=== PATIENT | female | born 1980 | race Caucasian/White ===

== ENCOUNTER → 2017-11-10 | Outpatient (CLI) | payer OTHER ==
--- NOTE | 2017-11-10 10:07 | MM ---
Reason for exam: screening (asymptomatic). Baseline mammogram. History: Family history of breast cancer in maternal cousin at age 40. Physical Findings: Nurse did not find any significant physical abnormalities on exam. MG Screening Mammo w CAD Bilateral CC and MLO view(s) were taken. The breast tissue is heterogeneously dense. This may lower the sensitivity of mammography. Nodular density 2.5cm from nipple upper outer quadrant. These results were verbally communicated with the patient and result sheet given to the patient on 11/10/17. ASSESSMENT: Incomplete: need additional imaging evaluation, BI-RAD 0 RECOMMENDATION: Special view mammogram of the left breast. If lesion persists on supplemental views, image directed ultrasound is recommended. [facility] will attempt to contact patient to return for supplemental views and ultrasound if indicated.
--- NOTE | 2017-11-10 10:07 | MM ---
Reason for exam: additional evaluation requested from abnormal screening. History: Family history of breast cancer in maternal cousin at age 40. Physical Findings: Breast exam preformed at baseline screening. MG Work Up Mamm w CAD LT Spot compression CC, spot compression MLO, and ML view(s) were taken of the left breast. Nodule persists at 12 o'clock 2cm from nipple. These results were verbally communicated with the patient and result sheet given to the patient on 11/10/17. ASSESSMENT: Incomplete: need additional imaging evaluation, BI-RAD 0 RECOMMENDATION: Ultrasound of the left breast.
--- NOTE | 2017-11-10 10:08 | USB ---
Reason for exam: additional evaluation requested from abnormal screening. History: Family history of breast cancer in maternal cousin at age 40. US Breast Workup Limited LT Left breast ultrasound demonstrates a 9 x 6 x 8mm lobular, cystic lesion at 4 o'clock. These results were verbally communicated with the patient and result sheet given to the patient on 11/10/17. ASSESSMENT: Benign, BI-RAD 2 RECOMMENDATION: Return to routine screening mammogram schedule for both breasts. Manage patient on a clinical basis.
== END | disposition home or self-care (01) ==
LOC: RADMAMWWP 08:20
PROVIDERS: ATTEND Family Medicine
DX: Z12.31 Encounter for screening mammogram for malignant neoplasm of breast (principal); Z80.3 Family history of malignant neoplasm of breast; R92.8 Other abnormal and inconclusive findings on diagnostic imaging of breast
CPT/HCPCS: 77065; 77067

== ENCOUNTER 2017-12-16 09:16 | Day surgery (SDC) | payer OTHER ==
[2017-12-11 13:05] VITALS: BMI 22.6
[~2017-12-16 09:16] MED LIST: LACTATED RINGERS 1,000 ML IV SCH; LIDOCAINE 1% 20 ML VIAL (10MG/ML) FOR IV START INTRADERMA PRN
--- NOTE | 2017-12-16 09:18 | P.GSHP ---
History of Present Illness H&P Date: 12/16/17 CHIEF COMPLAINT: GERD and change in bowel habits HISTORY OF PRESENT ILLNESS: The patient is a 37-year-old female who presents with gastroesophageal reflux disease and change in bowel habits. Upper and lower endoscopy were offered for further evaluation and management. PAST MEDICAL HISTORY: Please see list. PAST SURGICAL HISTORY: Please see list. MEDICATIONS: Please see list. ALLERGIES: Please see list. SOCIAL HISTORY: No illicit drug use FAMILY HISTORY: No reports of Crohn disease or ulcerative colitis. REVIEW OF ORGAN SYSTEMS: CONSTITUTIONAL: No reports of fevers or chills. GI: Denies any blood in stools or constipation. PHYSICAL EXAM: VITAL SIGNS: Stable GENERAL: Well-developed pleasant in no acute distress. HEENT: No scleral icterus. Extraocular movements grossly intact. Moist buccal mucosa. NECK: Supple without lymphadenopathy. CHEST: Unlabored respirations. Equal bilateral excursions. CARDIOVASCULAR: Regular rate and rhythm. Distal 2+ pulses. ABDOMEN: Soft, nondistended. MUSCULOSKELETAL: No clubbing, cyanosis, or edema. ASSESSMENT: 1. Gastroesophageal reflux disease 2. Change in bowel habits. PLAN: 1. Recommend proceeding with an upper and lower endoscopy Past Medical History Past Medical History: GERD/Reflux Additional Past Medical History / Comment(s): MTHFR. CHRONIC DIARRHEA. CURRENTLY ON ANTIBIOTICS FOR ABSCESS TO LT GREAT TOE History of Any Multi-Drug Resistant Organisms: None Reported Past Surgical History: Cholecystectomy, Hysterectomy, Uterine Ablation Additional Past Surgical History / Comment(s): D&C, EGD Past Anesthesia/Blood Transfusion Reactions: Previous Problems w/ Anesthesia, Family History of Problems w/ Anesthesia, Motion Sickness Additional Past Anesthesia/Blood Transfusion Reaction / Comment(s): PT STATES EYES VERY BLURRY AND BLADDER STOPS WORKING SINCE HYSTERECTOMY. PTS DAUGHTERS HAD SURGERY AT 3 AND 5 WEEKS OLD- THEY STOPPED BREATHING AND HEART RATE DROPPED. Smoking Status: Never smoker - Past Family History Sister(s) Family Medical History: Pulmonary Embolus Additional Family Medical History / Comment(s): sister has clotting disorder Medications and Allergies Home Medications Medication Instructions Recorded Confirmed Type Clindamycin [Cleocin] 450 mg PO DAILY 12/11/17 12/11/17 History Allergies Allergy/AdvReac Type Severity Reaction Status Date / Time amoxicillin Allergy Rash/Hives Verified 12/11/17 12:59 sulfamethoxazole Allergy Dyspnea Verified 12/11/17 12:59 [From Bactrim] trimethoprim [From Bactrim] Allergy Dyspnea Verified 12/11/17 12:59 adhesive AdvReac Severe peels Verified 12/11/17 12:59 skin, red,blisters amoxicillin trihydrate AdvReac Rash/Hives Verified 12/11/17 12:59 [From Augmentin] potassium clavulanate AdvReac Rash/Hives Verified 12/11/17 12:59 [From Augmentin]
[2017-12-16 09:49] VITALS: RESP 16; TEMP 98.2
[2017-12-16] MEDS ORDERED: LIDOCAINE 1% INJ 10MG/ML (20 ML MDV) ONE (10:17)
[2017-12-16] MEDS ORDERED: GLYCOPYRROLATE 0.2 MG/ML 2 ML VIAL ONE (10:17)
[2017-12-16] MEDS ORDERED: PROPOFOL 10 MG/ML 20 ML VIAL IV ONE (10:17)
--- NOTE | 2017-12-16 10:56 | P.PCN ---
Date of Procedure: 12/16/17 Description of Procedure: PREOPERATIVE DIAGNOSIS: Change in bowel habits. POSTOPERATIVE DIAGNOSIS: Change in bowel habits. Scattered diverticulosis. OPERATION: Colonoscopy to the ileocecal valve and appendiceal orifice. Colonoscopy with random cold forceps biopsies. SURGEON: Iva Robles MD. ANESTHESIA: MAC. INDICATIONS: The patient is a 37-year-old female who presents with change in bowel habits. Benefits and risks were described and informed consent was obtained. DESCRIPTION OF PROCEDURE: The patient had undergone Gatorade, MiraLAX and Dulcolax prep. She had been brought into the operating room and laid in the left lateral decubitus position. After adequate intravenous sedation, the rectum was examined with 2% lidocaine jelly. No external hemorrhoids were encountered. The rectal tone was within normal limits. No lesions were palpated in the rectal vault. An Olympus colonoscope was advanced until the ileocecal valve and appendiceal orifice were clearly viewed. The prep was excellent with clear visualization of the mucosal folds. The scope was removed with visualization of each mucosal fold. A few scattered diverticulosis was encountered. No colonic polyps were found. Random cold forceps biopsies was obtained throughout the colon to evaluate for collagenous colitis. Retroflexion of the scope demonstrated no inflammed internal hemorrhoids. The colon was desufflated. The patient had tolerated the procedure well. Withdrawal time was over 6 minutes. FINDINGS: No inflamed internal hemorrhoids. No external prolapsed hemorrhoids. No arteriovenous malformations. No adenomatous polyps. No focal colitis. RECOMMENDATIONS: Lower endoscopy per screening guidelines, age 50. Plan - Discharge Summary New Discharge Prescriptions: No Action Clindamycin [Cleocin] 450 mg PO DAILY Discharge Medication List Clindamycin [Cleocin] 450 mg PO DAILY 12/11/17 [History]
--- NOTE | 2017-12-16 10:58 | P.PCN ---
Date of Procedure: 12/16/17 Description of Procedure: PREOPERATIVE DIAGNOSIS: Gastroesophageal reflux disease. Dysphagia. POSTOPERATIVE DIAGNOSIS: Gastroesophageal reflux disease. Gastritis, moderate along antrum. Dysphagia. OPERATION: Esophagogastroduodenoscopy with biopsies along antrum. SURGEON: Iva Robles MD ANESTHESIA: MAC. INDICATIONS: The patient is a 37-year-old female who presents with a history of reflux disease. Benefits and risks of the procedure were described. Informed consent was obtained. DESCRIPTION: The patient was brought into the endoscopy suite and laid in the left lateral decubitus position. An Olympus gastroscope was passed along the posterior oropharynx down to the distal esophagus where the squamocolumnar junction was encountered at 38 cm from the incisors. The stomach was entered and no bile reflux was found. Additional findings are listed below. Biopsies with cold forceps were obtained of the antrum. The first through third portion of the duodenum was examined and unremarkable. Retroflexion of the scope confirmed Hill grade 1 lower esophageal valve. The squamocolumnar junction demostrated mild LA grade A erosive esophagitis. The stomach was desufflated. The patient tolerated the procedure well. FINDINGS: Squamocolumnar junction 38 cm from the incisors. Diaphragmatic hiatus at 38 cm. Hill grade 1 lower esophageal valve. LA grade A erosive esophagitis. No active duodenitis. Moderate superficial gastritis along antrum with biopsies obtained. RECOMMENDATIONS: Continue medical therapy. Further recommendations pending results of pathology report. Upper endoscopy as needed.
[2017-12-16 11:14] VITALS: BP 113/78; PULSE 88
== END 2017-12-16 11:48 | disposition home or self-care (01) ==
LOC: ORWHC2ENDO 09:16
PROVIDERS: ATTEND Surgery Plastic and Reconstructive Surgery
DX: K57.90 Diverticulosis of intestine, part unspecified, without perforation or abscess without bleeding (principal); K52.9 Noninfective gastroenteritis and colitis, unspecified; K22.10 Ulcer of esophagus without bleeding; K29.70 Gastritis, unspecified, without bleeding; Z79.2 Long term (current) use of antibiotics; Z88.0 Allergy status to penicillin; Z88.2 Allergy status to sulfonamides; Z91.09 Other allergy status, other than to drugs and biological substances
CPT/HCPCS: 88305; 45380; 43239; J2001; J2704

== ENCOUNTER → 2018-11-15 | Outpatient (CLI) | payer OTHER ==
--- NOTE | 2018-11-15 22:37 | MR ---
EXAMINATION TYPE: MR lumbar spine wo con DATE OF EXAM: 11/15/2018 COMPARISON: NONE HISTORY: Low back pain / Radiculopathy x2 weeks, pain down both legs, worse on the left TECHNIQUE: Multiplanar, multisequence imaging of the lumbar spine is performed without IV contrast. FINDINGS: Sagittal images of the lumbar spine show vertebral body heights and alignment to appear sat isfactory. The intervertebral discs demonstrate normal heights and hydration. The conus medullaris i s normal in position and signal ending at T12-L1 disc space level. The bone marrow signal intensity is within normal limits. No significant spurring is seen. Axial images show mild facet arthropathy L4-L5 level. Spinal canal is preserved. Bilateral neural for viki are patent. Paraspinal muscle bulk is maintained. IMPRESSION: Mild facet arthropathy L4-L5 level otherwise unremarkable study. No suspicious focal disc herniation is seen.
== END | disposition home or self-care (01) ==
LOC: RADMRIMAIN 18:46
PROVIDERS: ATTEND Family Medicine
DX: M46.96 Unspecified inflammatory spondylopathy, lumbar region (principal)
CPT/HCPCS: 72148

== ENCOUNTER → 2018-12-21 | Outpatient (CLI) | payer OTHER ==
--- NOTE | 2018-12-23 08:52 | MM ---
Reason for exam: screening (asymptomatic). Last mammogram was performed 1 year and 1 month ago. History: Family history of breast cancer in maternal cousin at age 40. Physical Findings: A clinical breast exam by your physician is recommended on an annual basis and results should be correlated with mammographic findings. MG Screening Mammo w CAD Bilateral CC and MLO view(s) were taken. Prior study comparison: November 10, 2017, left breast MG work up mamm w CAD LT. November 10, 2017, bilateral MG screening mammo w CAD. There are scattered fibroglandular densities. No significant changes when compared with prior studies. ASSESSMENT: Benign, BI-RAD 2 RECOMMENDATION: Routine screening mammogram of both breasts at age 40.
== END | disposition home or self-care (01) ==
LOC: RADMAMWWP 14:50
PROVIDERS: ATTEND Family Medicine
DX: Z12.31 Encounter for screening mammogram for malignant neoplasm of breast (principal); Z80.3 Family history of malignant neoplasm of breast
CPT/HCPCS: 77067

== ENCOUNTER 2019-05-06 16:36 | Emergency (ER) | payer OTHER ==
[2019-05-06] MEDS ORDERED: KETOROLAC 30 MG/ML 1 ML VIAL IVP STA (18:04)
--- NOTE | 2019-05-06 18:15 | ED ---
General Adult HPI - General Source: patient Mode of arrival: ambulatory Limitations: no limitations <Debora Goff - Last Filed: 05/06/19 20:11> <Flor Reardon - Last Filed: 05/07/19 04:37> - General Chief complaint: Vaginal Bleeding Stated complaint: vaginal bleeding Time Seen by Provider: 05/06/19 17:23 - History of Present Illness Initial comments: 39-year-old female patient presents to the emergency department today for evaluation of suprapubic abdominal cramping, low back pain, and which she believes may be vaginal bleeding. Patient states she is status post hysterectomy 4 years ago. Patient states she has not had any bleeding since the procedure. Patient states today when she used the bathroom the toilet bowl had pink tinged water. States she did have blood on the toilet paper with wiping. She denies any dysuria, urinary frequency, urinary urgency. Denies any flank pain. States she has had some nausea but denies vomiting. Denies fever or chills with this. Patient denies any recent rash, shortness breath, chest pain, diarrhea, constipation, back pain, numbness, tingling, dizziness, weakness, headache, visual changes, or any other complaints. (Debora Goff) - Related Data Home Medications Medication Instructions Recorded Confirmed Clindamycin [Cleocin] 450 mg PO DAILY 12/11/17 12/16/17 Previous Rx's Medication Instructions Recorded traMADol HCl [Ultram] 50 mg PO Q6HR PRN 3 Days #12 tab 05/06/19 Allergies Allergy/AdvReac Type Severity Reaction Status Date / Time amoxicillin Allergy Rash/Hives Verified 05/06/19 16:45 adhesive AdvReac Severe peels Verified 05/06/19 16:45 skin, red,blisters amoxicillin trihydrate AdvReac Rash/Hives Verified 05/06/19 16:45 [From Augmentin] potassium clavulanate AdvReac Rash/Hives Verified 05/06/19 16:45 [From Augmentin] Review of Systems ROS Other: All systems not noted in ROS Statement are negative. <Debora Goff - Last Filed: 05/06/19 20:11> ROS Other: All systems not noted in ROS Statement are negative. <Flor Reardon - Last Filed: 05/07/19 04:37> ROS Statement: Those systems with pertinent positive or pertinent negative responses have been documented in the HPI. Past Medical History Past Medical History: GERD/Reflux Additional Past Medical History / Comment(s): MTHFR. CHRONIC DIARRHEA. CURRENTLY ON ANTIBIOTICS FOR ABSCESS TO LT GREAT TOE History of Any Multi-Drug Resistant Organisms: None Reported Past Surgical History: Cholecystectomy, Hysterectomy, Uterine Ablation Additional Past Surgical History / Comment(s): D&C, EGD Past Anesthesia/Blood Transfusion Reactions: Previous Problems w/ Anesthesia, Family History of Problems w/ Anesthesia, Motion Sickness Additional Past Anesthesia/Blood Transfusion Reaction / Comment(s): PT STATES EYES VERY BLURRY AND BLADDER STOPS WORKING SINCE HYSTERECTOMY. PTS DAUGHTERS HAD SURGERY AT 3 AND 5 WEEKS OLD- THEY STOPPED BREATHING AND HEART RATE DROPPED. Past Psychological History: No Psychological Hx Reported Smoking Status: Never smoker Past Alcohol Use History: None Reported Past Drug Use History: None Reported - Past Family History Sister(s) Family Medical History: Pulmonary Embolus Additional Family Medical History / Comment(s): sister has clotting disorder <Debora Goff - Last Filed: 05/06/19 20:11> General Exam Limitations: no limitations General appearance: alert, in no apparent distress, other (Physical well- developed, well-nourished adult female patient in no acute distress. Vital signs upon presentation are temperature 98.1F, pulse 73, respirations 18, blood pressure 128/81, pulse ox 100% on room air.) Eye exam: Present: normal appearance, PERRL, EOMI. Absent: scleral icterus, conjunctival injection, periorbital swelling ENT exam: Present: normal exam, normal oropharynx, mucous membranes moist Respiratory exam: Present: normal lung sounds bilaterally. Absent: respiratory distress, wheezes, rales, rhonchi, stridor Cardiovascular Exam: Present: regular rate, normal rhythm, normal heart sounds. Absent: systolic murmur, diastolic murmur, rubs, gallop, clicks GI/Abdominal exam: Present: soft, tenderness (Lower abdominal tenderness), normal bowel sounds. Absent: distended, guarding, rebound, rigid External exam: Present: normal external exam Speculum exam: Present: normal speculum exam. Absent: vaginal bleeding Back exam: Present: normal inspection. Absent: CVA tenderness (R), CVA tenderness (L) Neurological exam: Present: alert, oriented X3, CN II-XII intact Psychiatric exam: Present: normal affect, normal mood Skin exam: Present: warm, dry, intact, normal color. Absent: rash <Debora Goff - Last Filed: 05/06/19 20:11> Course Vital Signs 05/06/19 05/06/19 05/06/19 16:45 18:53 22:33 Temperature 98.1 F 97.7 F Pulse Rate 73 71 65 Respiratory 18 16 18 Rate Blood Pressure 128/81 121/81 111/67 O2 Sat by Pulse 100 99 94 L Oximetry Medical Decision Making - Lab Data Result diagrams: 05/06/19 18:15 05/06/19 18:15 <Debora Goff - Last Filed: 05/06/19 20:11> - Lab Data Result diagrams: 05/06/19 18:15 05/06/19 18:15 - Radiology Data Radiology results: report reviewed <Flor Reardon - Last Filed: 05/07/19 04:37> - Medical Decision Making Patient is a 39-year-old female presents emergency department today for vaginal bleeding. She says history of hysterectomy. At this time Patient case was given to me as a signout from Debora Cabrera. She completed a pelvic exam and noted minimal bleeding that time. Patient's labwork was reviewed and considered unremarkable. She did have hematuria noted. CT abdomen and pelvis was pending upon my evaluation of Patient. Patient CT shows evidence of a right-sided ovarian cyst. Patient complains of some cramping-like pain. I discussed at this time the Patient to follow-up with her SUPERVISOR BAKING, no further treatment or imaging at this time. Patient understands treatment plan will comply. Return parameters were discussed. Given a short course of anti-inflammatory medication and Ultram for pain. (Flor Reardon) - Lab Data Lab Results 05/06/19 05/06/19 05/06/19 Range/Units 18:15 18:15 18:50 WBC 9.3 (3.8-10.6) k/uL RBC 4.42 (3.80-5.40) m/uL Hgb 13.0 (11.4-16.0) gm/dL Hct 40.0 (34.0-46.0) % MCV 90.4 (80.0-100.0) fL MCH 29.5 (25.0-35.0) pg MCHC 32.6 (31.0-37.0) g/dL RDW 13.0 (11.5-15.5) % Plt Count 262 (150-450) k/uL Neutrophils % 62 % Lymphocytes % 28 % Monocytes % 5 % Eosinophils % 2 % Basophils % 0 % Neutrophils # 5.8 (1.3-7.7) k/uL Lymphocytes # 2.6 (1.0-4.8) k/uL Monocytes # 0.5 (0-1.0) k/uL Eosinophils # 0.2 (0-0.7) k/uL Basophils # 0.0 (0-0.2) k/uL Sodium 140 (137-145) mmol/L Potassium 4.3 (3.5-5.1) mmol/L Chloride 106 (98-107) mmol/L Carbon Dioxide 25 (22-30) mmol/L Anion Gap 9 mmol/L BUN 17 (7-17) mg/dL Creatinine 0.58 (0.52-1.04) mg/dL Est GFR (CKD-EPI)AfAm >90 (>60 ml/min/1.73 sqM) Est GFR (CKD-EPI)NonAf >90 (>60 ml/min/1.73 sqM) Glucose 88 (74-99) mg/dL Calcium 9.3 (8.4-10.2) mg/dL Total Bilirubin 0.4 (0.2-1.3) mg/dL AST 31 (14-36) U/L ALT 31 (9-52) U/L Alkaline Phosphatase 59 (38-126) U/L Total Protein 6.8 (6.3-8.2) g/dL Albumin 4.2 (3.5-5.0) g/dL Amylase 38 (30-110) U/L Lipase 209 (23-300) U/L Urine Color Light Yellow Urine Appearance Clear (Clear) Urine pH 7.0 (5.0-8.0) Ur Specific [place] 1.017 (1.001-1.035) Urine Protein Negative (Negative) Urine Glucose (UA) Negative (Negative) Urine Ketones Negative (Negative) Urine Blood Moderate H (Negative) Urine Nitrite Negative (Negative) Urine Bilirubin Negative (Negative) Urine Urobilinogen <2.0 (<2.0) mg/dL Ur Leukocyte Esterase Negative (Negative) Urine RBC >182 H (0-5) /hpf Urine WBC 1 (0-5) /hpf Ur Squamous Epith Cells 5 H (0-4) /hpf Urine Bacteria Occasional H (None) /hpf Urine Mucus Rare H (None) /hpf - Radiology Data Ermold appendix. Right-sided pelvic cyst consistent with ovarian cyst. Minimal free fluid in the pelvis. Hysterectomy noted. (Flor Reardon) Disposition <Debora Goff - Last Filed: 05/06/19 20:11> Is patient prescribed a controlled substance at d/c from ED?: No Time of Disposition: 22:19 <Flor Reardon - Last Filed: 05/07/19 04:37> Clinical Impression: Right ovarian cyst Disposition: HOME SELF-CARE Condition: Good Instructions (If sedation given, give patient instructions): Ovarian Cyst (ED) Additional Instructions: Patient advised to with your SUPERVISOR BAKING. Take medications as prescribed. Motrin and Tylenol as well. Return to emergency department if any alarming signs or symptoms occur. Prescriptions: traMADol HCl [Ultram] 50 mg PO Q6HR PRN 3 Days #12 tab PRN Reason: Pain Referrals: Elio Larios MD [Primary Care Provider] - 1-2 days Danielle Ortiz DO [Doctor of Osteopathic Medicine] - 1-2 days
[2019-05-06 18:35] LABS: Basophils % (A) 0 %; Eosinophils # (A) 0.2 k/uL (0-0.7); Eosinophils % (A) 2 %; Lymphocytes # (A) 2.6 k/uL (1.0-4.8); Lymphocytes % (A) 28 %; MCH 29.5 pg (25.0-35.0); MCHC 32.6 g/dL (31.0-37.0); MCV 90.4 fL (80.0-100.0); Mean Platelet Volume 7.5; Monocytes # (A) 0.5 k/uL (0-1.0); Monocytes % (A) 5 %; Neutrophils # (A) 5.8 k/uL (1.3-7.7); Neutrophils % (A) 62 %; Platelet Count 262 k/uL (150-450); RBC 4.42 m/uL (3.80-5.40); WBC 9.3 k/uL (3.8-10.6)
[2019-05-06 18:42] LABS: ALT 31 U/L (9-52); AST 31 U/L (14-36); African American GFR (CKD) >90 (>60 ml/min/1.73 sqM); Albumin 4.2 g/dL (3.5-5.0); Alkaline Phosphatase 59 U/L (38-126); Amylase 38 U/L (30-110); Anion Gap 9 mmol/L; Blood Urea Nitrogen 17 mg/dL (7-17); Calcium 9.3 mg/dL (8.4-10.2); Carbon Dioxide 25 mmol/L (22-30); Chloride 106 mmol/L (98-107); Glucose 88 mg/dL (74-99); Lipase 209 U/L (23-300); Potassium 4.3 mmol/L (3.5-5.1); Sodium 140 mmol/L (137-145); Total Bilirubin 0.4 mg/dL (0.2-1.3); Total Protein 6.8 g/dL (6.3-8.2)
[2019-05-06 19:04] LABS: Appearance,Urine Clear (Clear); Bacteria,Urine Occasional /hpf; Bilirubin,Urine Negative (Negative); Blood,Urine Moderate (Negative); Color,Urine Light Yellow; Glucose,Urine (UA) Negative (Negative); Ketones,Urine Negative (Negative); Leukocyte Esterase,Urine Negative (Negative); Mucus,Urine Rare /hpf; Nitrite,Urine Negative (Negative); Protein,Urine Negative (Negative); RBC,Urine >182 /hpf (0-5); Specific Gravity,Urine 1.017 (1.001-1.035); Squamous Epithelial Cell,Urine 5 /hpf (0-4); Urobilinogen,Urine <2.0 mg/dL (<2.0); WBC,Urine 1 /hpf (0-5)
--- NOTE | 2019-05-06 19:23 | XR ---
EXAMINATION TYPE: XR KUB DATE OF EXAM: 05/06/2019 COMPARISON: NONE HISTORY: Abdominal pain TECHNIQUE: 2 views upright FINDINGS: Bowel gas pattern is normal. There is no sign of intestinal obstruction or pneumoperitoneum . Fecal pattern is normal. There are no pathologic calcifications. Lung bases are clear. There are cl ips from cholecystectomy. There are phleboliths in the pelvis. IMPRESSION: Nonacute abdomen.
[2019-05-06] MEDS ORDERED: MORPHINE SULFATE 2 MG/ML SYRINGE IVP STA (20:09)
--- NOTE | 2019-05-06 21:54 | CT ---
EXAMINATION TYPE: CT abdomen pelvis w con DATE OF EXAM: 05/06/2019 COMPARISON: None HISTORY: Vaginal bleeding. History of hysterectomy. CT DLP: 669 mGycm Automated exposure control for dose reduction was used. TECHNIQUE: Helical acquisition of images was performed from the lung bases through the pelvis. CONTRAST: Performed without Oral Contrast and with IV Contrast, patient injected with 100ml mL of Isovue 300. FINDINGS: Lung bases are clear. There is no pleural effusion. Heart size is normal. There is no pericardial eff usion. There are clips from cholecystectomy. There is minimal ectasia of the biliary tree. This is probably within normal limits. Spleen appears normal. There is no pancreatic mass. Stomach appears normal. There is no adrenal mass. Kidneys show satisfactory contrast opacification. There is no hydronephrosi s. Ureters are not dilated. There is no retroperitoneal adenopathy. There is hysterectomy. Bladder di stends smoothly. There is 3.7 cm cyst on the right adnexal region consistent with ovarian cyst. There is tiny amount of fluid in the pelvis. There is no mesenteric edema. There is no free air. There is no evidence of a bowel obstruction. The appendix appears normal. Lumbar vertebra have normal spacing and alignment. There is no compression f racture. Posterior elements are intact. Bony pelvis appears intact. IMPRESSION: NORMAL APPENDIX. RIGHT-SIDED PELVIC CYST CONSISTENT WITH OVARIAN CYST. MINIMAL FREE FLUID IN THE PELV IS. HYSTERECTOMY NOTED.
[2019-05-06] MEDS ORDERED: traMADol 50 MG STARTER PACK 3 TAB BTL PO STA (22:20)
[2019-05-06 22:34] VITALS: BP 111/67; PULSE 65; RESP 18; TEMP 97.7
== END 2019-05-06 22:40 | disposition home or self-care (01) ==
LOC: EC 16:36
DX: N83.201 Unspecified ovarian cyst, right side (principal); R31.9 Hematuria, unspecified; Z88.0 Allergy status to penicillin; Z91.048 Other nonmedicinal substance allergy status; Z90.49 Acquired absence of other specified parts of digestive tract; Z90.710 Acquired absence of both cervix and uterus
CPT/HCPCS: 36415; 80053; 82150; 83690; 85025; 81001; 74018; 74177; 99284; 96374; 96375; J1885; J2270; Q9967

== ENCOUNTER 2019-08-24 10:09 | Day surgery (SDC) | payer OTHER ==
[2019-08-22 15:42] VITALS: BMI 23.3
[2019-08-24 10:27] VITALS: RESP 16; TEMP 97.7
[2019-08-24] MEDS ORDERED: PROPOFOL 10 MG/ML 20 ML VIAL IV ONE (10:57)
--- NOTE | 2019-08-24 11:38 | P.PCN ---
Date of Procedure: 08/24/19 Procedure(s) Performed: BRIEF HISTORY: Patient is a 39-year-old pleasant white female scheduled for an elective colonoscopy as a part of screening for colorectal neoplasia. She has strong family history of colon cancer diagnosed in 3 paternal uncles and a paternal aunt in the early 50s. Patient states that she had genetic testing done and was positive for a gene that causes increase as well as his ability to breast and colon cancer. Hence she was recommended to have a colonoscopy every one to [address] Richmond. Her last coloscopy was 3 years ago and was normal. PROCEDURE PERFORMED: Colonoscopy. PREOPERATIVE DIAGNOSIS: Screening for colon cancer/family history of colon cancer. IV sedation per Anesthesia. PROCEDURE: After informed consent was obtained, the patient, was brought into the endoscopy unit. IV sedation was administered by Anesthesia under continuous monitoring. Digital rectal examination was normal. Initially the Olympus CF-160 flexible video colonoscope was then inserted in the rectum, gradually advanced into the cecum without any difficulty. Careful examination was performed as the scope was gradually being withdrawn. Ileocecal valve and the appendiceal orifice were visualized and appeared normal. Prep was excellent. Mucosa of the cecum, ascending colon, transverse colon, descending colon, sigmoid colon, and rectum appeared normal. Retroflexion was performed in the rectum and no lesions were seen. The patient tolerated the procedure well. IMPRESSION: Normal-appearing colon from rectum to cecum with no evidence of colorectal neoplasia. RECOMMENDATIONS: Findings of this examination were discussed with the patient as well as a family. She was advised to have a repeat screening colonoscopy every 1-2 years because of the high risk of colon cancer.
[2019-08-24 11:58] VITALS: BP 108/72; PULSE 72
== END 2019-08-24 12:40 | disposition home or self-care (01) ==
LOC: ORWHC2ENDO 10:09
PROVIDERS: ATTEND Internal Medicine Gastroenterology
DX: Z12.11 Encounter for screening for malignant neoplasm of colon (principal); R32 Unspecified urinary incontinence; Z80.0 Family history of malignant neoplasm of digestive organs; Z88.0 Allergy status to penicillin; Z79.899 Other long term (current) drug therapy; Z91.048 Other nonmedicinal substance allergy status; Z15.01 Genetic susceptibility to malignant neoplasm of breast; Z15.09 Genetic susceptibility to other malignant neoplasm
CPT/HCPCS: J2704; G0105; 45378

== ENCOUNTER → 2021-02-28 | Outpatient (CLI) | payer OTHER ==
--- NOTE | 2021-03-01 11:45 | MM ---
Reason for exam: screening (asymptomatic). Last mammogram was performed 2 years and 2 months ago. History: Family history of breast cancer in maternal cousin at age 40. Physical Findings: A clinical breast exam by your physician is recommended on an annual basis and results should be correlated with mammographic findings. MG Screening Mammo w CAD Bilateral CC and MLO view(s) were taken. Prior study comparison: December 21, 2018, bilateral MG screening mammo w CAD. November 10, 2017, left breast MG work up mamm w CAD LT. The breast tissue is heterogeneously dense. This may lower the sensitivity of mammography. No significant changes when compared with prior studies. ASSESSMENT: Benign, BI-RAD 2 RECOMMENDATION: Routine screening mammogram of both breasts in 1 year.
== END | disposition home or self-care (01) ==
LOC: RADMAMWWP 12:21
PROVIDERS: ATTEND Family Medicine
DX: Z12.31 Encounter for screening mammogram for malignant neoplasm of breast (principal); Z80.3 Family history of malignant neoplasm of breast
CPT/HCPCS: 77067

== ENCOUNTER → 2022-05-01 | Outpatient (CLI) | payer OTHER ==
--- NOTE | 2022-05-02 15:43 | MM ---
Reason for Exam: Screening (asymptomatic). Last mammogram was performed 1 year(s) and 2 month(s) ago. Patient History: Menarche at age 10. First Full-Term at age 27. Hysterectomy at age 34. Premenopausal. Patient has history of breast feeding. Maternal cousin had breast cancer, age 40. Risk Values: Yolis 5 year model risk: 0.8%. NCI Lifetime model risk: 11.9%. Prior Study Comparison: 11/10/2017 Bilateral Screening Mammogram, [facility]. 11/10/2017 Left Diagnostic Mammogram, [facility]. 12/21/2018 Bilateral Screening Mammogram, [facility]. 02/28/2021 Bilateral Screening Mammogram, [facility]. Tissue Density: The breast tissue is heterogeneously dense. This may lower the sensitivity of mammography. Findings: Analyzed By CAD. There is no suspicious group of microcalcifications or new suspicious mass in either breast. Overall Assessment: Negative, BI-RAD 1 Management: Screening Mammogram of both breasts in 1 year. 1. Patient should continue monthly self breast exams. 2. A clinical breast exam by your physician is recommended on an annual basis. 3. This exam should not preclude additional follow-up of suspicious palpable abnormalities. Electronically signed and approved by: Carmen Sarmiento M.D. Radiologist
== END | disposition home or self-care (01) ==
LOC: RADMAMWWP 12:38
PROVIDERS: ATTEND Family Medicine
DX: Z12.31 Encounter for screening mammogram for malignant neoplasm of breast (principal); Z80.3 Family history of malignant neoplasm of breast
CPT/HCPCS: 77063; 77067

== ENCOUNTER 2023-04-08 19:40 | Emergency (ER) | payer OTHER ==
[2023-04-08 20:16] VITALS: TEMP 97.5
[2023-04-08] MEDS ORDERED: IBUPROFEN 400 MG TAB PO STA (21:17)
[2023-04-08] MEDS ORDERED: ACETAMINOPHEN TAB 325 MG TAB PO STA (21:17)
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
[2023-04-08 22:32] VITALS: BP 131/89; PULSE 82; RESP 18
== END 2023-04-08 22:35 | disposition home or self-care (01) ==
LOC: EC 19:40
DX: M54.9 Dorsalgia, unspecified (principal); M16.12 Unilateral primary osteoarthritis, left hip; Z88.0 Allergy status to penicillin; Z91.09 Other allergy status, other than to drugs and biological substances; Z88.8 Allergy status to other drugs, medicaments and biological substances; M51.36 Other intervertebral disc degeneration, lumbar region; Z88.1 Allergy status to other antibiotic agents; V49.9XXA Car occupant (driver) (passenger) injured in unspecified traffic accident, initial encounter
CPT/HCPCS: 72100; 73502; 99283

== ENCOUNTER → 2024-01-22 | Outpatient (CLI) | payer OTHER ==
--- NOTE | 2024-01-25 08:55 | MM ---
Reason for Exam: Screening (asymptomatic). Last mammogram was performed 1 year(s) and 8 month(s) ago. Patient History: Menarche at age 10. First Full-Term at age 27. Hysterectomy at age 34. Premenopausal. Patient has history of breast feeding. Maternal cousin had breast cancer, age 40. Maternal aunt had ovarian cancer at or over age 50. Risk Values: Yolis 5 year model risk: 0.9%. NCI Lifetime model risk: 11.8%. Prior Study Comparison: 11/10/2017 Bilateral Screening Mammogram, [facility]. 11/10/2017 Left Diagnostic Mammogram, [facility]. 12/21/2018 Bilateral Screening Mammogram, [facility]. 02/28/2021 Bilateral Screening Mammogram, [facility]. 05/01/2022 Bilateral MG 3D screening mammo w/cad, [facility]. Tissue Density: The breasts are heterogeneously dense, which may obscure small masses. Findings: Analyzed By CAD. The pattern is symmetrical. No significant interval change No suspicious groups of microcalcifications, spiculated or lobular masses, architectural distortion or other secondary signs of malignancy are mammographically apparent. Overall Assessment: Benign, BI-RAD 2 Management: Screening Mammogram of both breasts in 1 year. A negative mammogram report should not preclude additional follow up of suspicious palpable abnormalities. Patient should continue monthly self breast exam. A clinical breast exam by your physician is recommended on an annual basis and results should be correlated with mammographic findings. Electronically signed and approved by: Edis Gillette D.O. Radiologis
== END | disposition home or self-care (01) ==
LOC: RADMAMWWP 12:30
PROVIDERS: ATTEND Family Medicine
DX: Z12.31 Encounter for screening mammogram for malignant neoplasm of breast (principal); Z80.3 Family history of malignant neoplasm of breast
CPT/HCPCS: 77067

== ENCOUNTER → 2024-04-07 | Outpatient (CLI) | payer OTHER ==
--- NOTE | 2024-04-07 18:01 | US ---
EXAMINATION TYPE: US thyroid st tissue head/neck DATE OF EXAM: 04/07/2024 COMPARISON: NONE CLINICAL INDICATION: Female, 44 years old with history of R49.0 DYSPHONIA; GLAND SIZE: Right Lobe: 4.0 x 1.0 x 1.2 cm Overall Parenchyma: homogeneous Left Lobe: 3.8 x 0.7 x 1.3 cm Overall Parenchyma: homogeneous Isthmus Thickness: 0.1 cm NODULES RIGHT: # of nodules measured on right: 0 LEFT: # of nodules measured on left: 0 ISTHMUS: # of nodules measured in the isthmus: 0 Bilateral neck scanned, no evidence of lymphadenopathy. IMPRESSION: 1. No thyromegaly. 2. No thyroid nodules or cysts 2017 ACR TI-RADS LEVEL: 0 *Highest TI-RADS level nodule reported
== END | disposition home or self-care (01) ==
LOC: RADUSWWP 15:16
PROVIDERS: ATTEND Family Medicine
DX: R49.0 Dysphonia (principal)
CPT/HCPCS: 76536

== ENCOUNTER → 2024-06-02 | Outpatient (CLI) | payer OTHER ==
--- NOTE | 2024-07-12 09:40 | CONS ---
CONSULTATION REASON FOR CONSULTATION: 44-year-old lady has [facility] for loud snoring and witnessed episodes of sleep apnea. HISTORY OF PRESENT ILLNESS: Sleep-wake evaluation. The patient's usual sleep schedule from 9 p.m. to 6:00 a.m. on weekdays and from 11 p.m. to 10:00 a.m. on weekends. No problems with falling asleep. During the sleep, the patient wakes up 2 times. During the day, the patient feels sleepiness. [place] Sleepiness Scale is 8. The patient takes one nap in the middle of the day. Positive history of hypnagogic hallucinations, but no sleep paralysis or cataplexy. PAST MEDICAL HISTORY: Hyperlipidemia, sinus problems, headaches sometimes started in the morning after awakenings, anxiety, and depression. SOCIAL HISTORY: Negative for smoking or using alcohol. MEDICATION: Effexor once a day. FAMILY HISTORY: Positive for hypertension, asthma, thyroid problems, and peptic ulcer disease. REVIEW OF SYSTEMS: Loud snoring, awakenings from sleep, feeling tiredness and sleepiness during the day. No fevers. No double vision. No recent chest pain. No shortness of breath. No abdominal pain. No bleeding episodes. No blood in the urine. No seizure episodes. PHYSICAL EXAMINATION: GENERAL: The patient is in no distress. Awake, alert, oriented x3. VITAL SIGNS: BP 142/70, HR 95, RR 16, temperature 97.9, weight 142.2 pounds, body mass index 23.4. HEENT: PERRLA, EOMI, low position of soft palate, Mallampati 3. NECK: Supple. No JVD. 13.5 inches in circumference. LUNGS: Clear. HEART: S1, S2 regular. No murmurs, gallop, or up. ABDOMEN: Soft, nontender. EXTREMITIES: No edema. FINANCIAL SYSTEMS MANAGER: No focal deficit. IMPRESSION: 1. Snoring, witnessed episodes of sleep apnea, low position of soft palate, possible obstructive sleep apnea-hypopnea syndrome. 2. Long sleep time, excessive daytime sleepiness, positive history of hypnagogic hallucinations, possible hypersomnia. 3. Depression. 4. History of anxiety. 5. History of headaches after awakenings. 6. Status post partial hysterectomy. PLAN: 1. Polysomnography for evaluation of the patient breathing during sleep. 2. Multiple sleep latency test if sleep study is negative for obstructive sleep apnea- hypopnea syndrome. 3. Sleep hygiene and regular time in bed for at least 8 hours. 4. Precautions related to driving. No driving if feeling sleepiness. Thank you very much for referring this patient for consultation. Sincerely, VENANCIO / IJN: [id number] /
== END ==
LOC: 3 N SLEEP 10:36
PROVIDERS: ATTEND Internal Medicine
CPT/HCPCS: 99211

== ENCOUNTER 2024-07-19 09:41 | Day surgery (SDC) | payer OTHER ==
[2024-07-18 10:39] VITALS: BMI 22.7
[~2024-07-19 09:41] MED LIST changes: -LIDOCAINE 1% 20 ML VIAL (10MG/ML) FOR IV START INTRADERMA PRN
[2024-07-19 10:35] VITALS: TEMP 97.6
[2024-07-19] MEDS: IV FLUID CONTINUATION 1,000 ML IV ONE (10:35)
[2024-07-19] MEDS ORDERED: LIDOCAINE 2% (PF) 20 MG/ML 5 ML VIAL ONE (11:21)
[2024-07-19] MEDS ORDERED: PROPOFOL 10 MG/ML 20 ML VIAL IV ONE (11:21)
--- NOTE | 2024-07-19 11:40 | P.PCN ---
Date of Procedure: 07/19/24 Procedure(s) Performed: BRIEF HISTORY: Patient is a 40-year-old pleasant white female scheduled for an elective colonoscopy as a part of screening for colon cancer. She does have strong family history of colon cancer diagnosed in 3 paternal uncles and paternal aunt all in their early 50s. She herself had genetic testing and was positive for a gene that increases her susceptibility for breast and colon cancer. Her last colonoscopy was 5 years ago. PROCEDURE PERFORMED: Colonoscopy. PREOPERATIVE DIAGNOSIS: Screening for colon cancer and family history of colon cancer]. IV sedation per Anesthesia. PROCEDURE: After informed consent was obtained, the patient, was brought into the endoscopy unit. IV sedation was administered by Anesthesia under continuous monitoring. Digital rectal examination was normal. Initially the Olympus CF-160 flexible video colonoscope was then inserted in the rectum, gradually advanced into the cecum without any difficulty. Careful examination was performed as the scope was gradually being withdrawn. Ileocecal valve and the appendiceal orifice were visualized and appeared normal. Prep was fair. Thyroidization was performed.. Mucosa of the cecum, ascending colon, transverse colon, descending colon, sigmoid colon, and rectum appeared normal. Retroflexion was performed in the rectum and no lesions were seen. The patient tolerated the procedure well. IMPRESSION: Normal-appearing colon from rectum to cecum no evidence of colorectal neoplasia. RECOMMENDATIONS: Findings of this examination were discussed with the patient as well as her family. She was advised to have repeat screening colonoscopy because of the strong family history of colon cancer as well as genetic susceptibility to colon cancer.
[2024-07-19 11:58] VITALS: BP 123/80; PULSE 74; RESP 16
== END 2024-07-19 12:26 | disposition home or self-care (01) ==
LOC: ORWHC2ENDO 09:41
PROVIDERS: ATTEND Internal Medicine Gastroenterology
DX: Z80.0 Family history of malignant neoplasm of digestive organs
CPT/HCPCS: 45378

== ENCOUNTER → 2025-05-23 | Outpatient (CLI) | payer OTHER ==
--- NOTE | 2025-05-23 18:07 | MM ---
Reason for Exam: Screening (asymptomatic). Last mammogram was performed 1 year(s) and 4 month(s) ago. Patient History: Menarche at age 10. First Full-Term at age 27. Hysterectomy at age 34. Premenopausal. Patient has history of breast feeding. Maternal cousin had breast cancer, age 40. Maternal aunt had ovarian cancer at or over age 50. Risk Values: Yolis 5 year model risk: 1.0%. NCI Lifetime model risk: 11.6%. Prior Study Comparison: 02/28/2021 Bilateral Screening Mammogram, [facility]. 05/01/2022 Bilateral MG 3D screening mammo w/cad, [facility]. 01/22/2024 Bilateral MG screening mammo w CAD, [facility]. Tissue Density: The breasts are heterogeneously dense, which may obscure small masses. Findings: Analyzed By CAD. Areas of asymmetric density remain unchanged. There is no suspicious group of microcalcifications or new suspicious mass in either breast. Overall Assessment: Benign, BI-RAD 2 Management: Screening Mammogram of both breasts in 1 year. Patient should continue monthly self-breast exams. A clinical breast exam by your physician is recommended on an annual basis. This exam should not preclude additional follow-up of suspicious palpable abnormalities. Note on Yolis scores and lifetime risk: 1. A Yolis score greater than 3% is considered moderate risk. If this is the case, consider specialist referral to assess eligibility for a risk reducing agent. 2. If overall lifetime risk for the development of breast cancer is 20% or higher, the patient may qualify for future screening with alternating mammogram and breast MRI. [facility], , 05/23/2025 6:04 PM. Electronically signed and approved by: Carmen Sarmiento M.D. Radiologist
== END | disposition home or self-care (01) ==
LOC: RADMAMWWP 15:39
PROVIDERS: ATTEND Family Medicine
DX: Z12.31 Encounter for screening mammogram for malignant neoplasm of breast (principal); R92.333 Mammographic heterogeneous density, bilateral breasts; Z80.3 Family history of malignant neoplasm of breast
CPT/HCPCS: 77067